=== PATIENT | female | born 1955 | race Caucasian/White ===

== ENCOUNTER → 2017-07-17 | Outpatient (CLI) | payer BC ==
[~2017-07-17] MED LIST: ALBU90I INH; AMLO10 PO; ASPI81CH; ASPI81CH PO; ATEN25 PO; ATOR40TA PO; CHLO25B PO; CITA20 PO; Cephalexin500 MG PO; Diethylpropion75 MG PO; FURO40 PO; LOSA50 PO; LUTEIN1 GM PO; METF500C PO; Monodox100 MG PO; Norco 5-325 Ta1 EACH PO; ONDA4ODT MM; POTA10T PO; PRAV20 PO; PROM25 PO; VENL37.5 PO; Vibramycin100 MG PO; [UNRECOGNIZED DRUG - REMARK]; [UNRECOGNIZED DRUG - REMARK]
[2017-07-17 11:07] LABS: Microalb/Creat Ratio UR, Rand Unable to Calculate mg/g (0.000-30.000); Microalbumin, Random Urine <5.000 mg/L (0.000-20.000)
== END | disposition home or self-care (01) ==
LOC: OLS 08:32
PROVIDERS: Nurse Practitioner Family
DX: E11.9 Type 2 diabetes mellitus without complications (principal)
CPT/HCPCS: 82043; 82570

== ENCOUNTER 2018-01-29 07:20 | Emergency (ER) | payer BC ==
[~2018-01-29] VITALS: Ht 165.1 cm; Wt 90.7 kg
[~2018-01-29 07:20] MED LIST changes: -Cephalexin500 MG PO; -Monodox100 MG PO
[2018-01-29] MEDS ORDERED: Monodox100 MG PO (11:13)
== END 2018-01-29 11:20 | disposition home or self-care (01) ==
LOC: ER 07:20
DX: L03.114 Cellulitis of left upper limb (principal); Z88.2 Allergy status to sulfonamides; Z88.8 Allergy status to other drugs, medicaments and biological substances; Z79.899 Other long term (current) drug therapy; Z79.82 Long term (current) use of aspirin; Z79.84 Long term (current) use of oral hypoglycemic drugs; I10 Essential (primary) hypertension
CPT/HCPCS: 73110; 73201; 99284-25; Q9967

== ENCOUNTER 2018-06-14 07:34 | Day surgery (SDC) | payer BC ==
[~2018-06-14] VITALS: Ht 165.1 cm; Wt 88.9 kg
[~2018-06-14 07:34] MED LIST changes: +Cephalexin500 MG PO; +Monodox100 MG PO
== END 2018-06-14 09:28 | disposition home or self-care (01) ==
LOC: ORSCSDS 07:34
PROVIDERS: Student in an Organized Health Care Education/Training Program
PROC: 0DJD8ZZ Inspection of Lower Intestinal Tract, Via Natural or Artificial Opening Endoscopic (ICD-10-PCS; principal; 2018-06-14 08:45)
DX: Z12.11 Encounter for screening for malignant neoplasm of colon (principal); K57.30 Diverticulosis of large intestine without perforation or abscess without bleeding; I10 Essential (primary) hypertension; E11.9 Type 2 diabetes mellitus without complications; G47.33 Obstructive sleep apnea (adult) (pediatric); Z79.899 Other long term (current) drug therapy; Z79.82 Long term (current) use of aspirin; E66.9 Obesity, unspecified; Z68.32 Body mass index [BMI] 32.0-32.9, adult
CPT/HCPCS: 82947; J7120